=== PATIENT | male | born 1975 | race Caucasian/White ===

== ENCOUNTER 2023-02-23 07:40 | Emergency (ER) | payer OTHER, MEDICAID, SELFPAY ==
[2023-02-23] VITALS (13 sets, daily range): BP systolic 151–200; BP diastolic 88–129; PULSE 55–135; RESP 13–27; TEMP 37.4; O2SAT 96–99
--- NOTE | 2023-02-23 08:20 | ED.GENADULT ---
HPI - General Adult General Chief complaint: Abdominal Pain Stated complaint: abd pain Time Seen by Provider: 02/23/23 07:47 Source: patient Mode of arrival: Family Vehicle History of Present Illness HPI narrative: 47-year-old gentleman with a history of alcohol use disorder drink summer clean 6-12 vodka drinks daily, hypertension for which he takes losartan currently living on [place] presents with 2 days of severe abdominal pain as soon as he wakes up in the morning. Yesterday he had significant tenderness immediately after he awoke. He had some dry heaves but no acute vomiting. After about 3 hours it abated. He had normal appetite was able to eat and drink as usual amounts including his usual amounts of alcohol. He was feeling fine slept well when he woke up this morning within minutes of getting up he again had recurrent severe abdominal pain worse in the left upper quadrant, also involving the epigastrium. He states he had a episode of vomiting this morning that did not have any bloody debris. He has not had diarrhea and describes no black stools. He has not had fevers, cough, chills, headaches. No neurologic complaints. Of note, he did take his morning losartan but vomited shortly thereafter. He did have a drink of vodka to help with feeling shaky and somewhat nauseated. Related Data Previous Rx's Medication Instructions Recorded chlordiazepoxide HCl 25 mg capsule 25 mg PO TID PRN alcohol 02/23/23 withdrawal #20 caps Allergies Allergy/AdvReac Type Severity Reaction Status Date / Time No Known Drug Allergies Allergy Verified 02/23/23 09:16 Review of Systems Review of Systems Narrative: Pertinent positive and negative findings as per HPI Patient History Medical History Hypertension Alcohol use disorder Social History Smoking Status: Former smoker Smoking Status: Former smoker tobacco type: cigarettes and vaping alcohol intake frequency: 0-2 drinks per day Substance Use Type: does not use Exam Initial Vital Signs Initial Vital Signs: Vital Signs Temperature 99.3 F 02/23/23 07:40 Pulse Rate 76 02/23/23 07:40 Respiratory Rate 20 02/23/23 07:40 Blood Pressure 151/88 H 02/23/23 07:40 Pulse Oximetry 99 02/23/23 07:40 Oxygen Delivery Method Room Air 02/23/23 07:40 General: Healthy appearing, in no acute distress. Able to give a complete and coherent history. Well-nourished well-developed HEENT: Moist mucous membranes, normal sclera with reactive pupils, Neck: No JVD, supple Respiratory: Lungs are clear to auscultation, no wheezing no rales no rhonchi. Full and symmetrical air movement Cardiac: Regular rate and rhythm no murmurs no bruits Abdomen: Soft, moderate tenderness in the left upper quadrant and epigastrium, mild diffuse tenderness throughout. No rebound or guarding. Skin: Warm and dry, no rashes Neurologic: Grossly neurologically intact with no obvious asymmetries or abnormalities, does have a fine tremor. Extremities: No trauma, well perfused Psych: Cooperative, appropriate insight and affect Course Orders Ordered: ED Orders 02/23/23 08:12 Complete Blood Count AUTO DIFF Stat Comprehensive Metabolic Panel Stat Lipase Stat EKG-12 Lead Stat 02/23/23 08:35 CT abdomen pelvis w con Stat Hydromorphone HCl (Hydromorphone 0.5 Mg Inj) 0.5 mg IV Q15MIN PRN PRN Reason: Pain, Last Admin: 02/23/23 09:19 Dose: 0.5 mg Documented By: DEANDRA Ondansetron HCl (Ondansetron 4 Mg Odt) 4 mg PO NOW PRN PRN Reason: Nausea And Vomiting Ondansetron HCl (Ondansetron 4 Mg/2 Ml Inj) 4 mg IV NOW PRN PRN Reason: Nausea And Vomiting Last Admin: 02/23/23 09:20 Dose: 4 mg Documented By: DEANDRA Discontinued Medications Sodium Chloride (Normal Saline 0.9%) 1,000 mls @ 1,000 mls/hr IV BOLUS ONE Stop: 02/23/23 09:34 Last Infusion: 02/23/23 10:14 Dose: Infused Documented By: Admin: 02/23/23 09:19 Dose: 1,000 mls/hr Documented By: DEANDRA Lorazepam (Lorazepam 2 Mg/Ml Inj) 1 mg IV NOW ONE Stop: 02/23/23 08:36 Last Admin: 02/23/23 10:05 Dose: 1 mg Documented By: DEANDRA Vital Signs Vital signs: Vital Signs - 8 hr 02/23/23 07:40 02/23/23 07:50 02/23/23 07:51 Temperature 99.3 F Pulse Rate 76 79 Respiratory Rate 20 Blood Pressure 151/88 H 189/107 H Pulse Oximetry 99 97 Oxygen Delivery Method Room Air 02/23/23 07:51 02/23/23 08:00 02/23/23 08:00 Temperature Pulse Rate 67 76 Respiratory Rate 22 Blood Pressure 169/110 H Pulse Oximetry 97 97 Oxygen Delivery Method 02/23/23 08:14 02/23/23 08:14 02/23/23 08:27 Temperature Pulse Rate 66 Respiratory Rate 22 Blood Pressure 168/112 H 183/111 H Pulse Oximetry 98 Oxygen Delivery Method 02/23/23 08:27 02/23/23 08:30 02/23/23 08:30 Temperature Pulse Rate 67 65 Respiratory Rate 21 19 Blood Pressure 167/103 H Pulse Oximetry 97 98 Oxygen Delivery Method 02/23/23 08:57 02/23/23 08:57 02/23/23 09:00 Temperature Pulse Rate 57 L Respiratory Rate 13 Blood Pressure 184/115 H 177/117 H Pulse Oximetry 98 Oxygen Delivery Method 02/23/23 09:00 02/23/23 09:30 02/23/23 09:30 Temperature Pulse Rate 60 65 Respiratory Rate 13 27 H Blood Pressure 188/118 H Pulse Oximetry 98 97 Oxygen Delivery Method 02/23/23 09:48 02/23/23 09:48 02/23/23 10:00 Temperature Pulse Rate 55 L Respiratory Rate 24 Blood Pressure 175/107 H 200/129 H Pulse Oximetry 98 Oxygen Delivery Method 02/23/23 10:00 Temperature Pulse Rate 135 H Respiratory Rate 24 Blood Pressure Pulse Oximetry 98 Oxygen Delivery Method Room Air Medical Decision Making Lab Data 02/23/23 08:12 02/23/23 08:12 Labs: Lab Results 02/23/23 Range/Units 08:12 WBC 11.0 (4.5-11.0) X10^3/uL RBC 4.16 L (4.5-5.9) X10^6/uL Hgb 13.9 (13.5-17.5) g/dL Hct 40.3 L (41-53) % MCV 96.8 (80-100) fL MCH 33.3 (26-34) PG MCHC 34.4 (30-36) % RDW 13.1 (11.6-14.8) % Plt Count 326 (150-400) X10^3/uL Neut % (Auto) 71.7 (50-75) % Lymph % (Auto) 17.3 L (25-40) % [place] % (Auto) 9.3 (3-14) % Eos % (Auto) 1.2 L (2-4) % Baso % (Auto) 0.5 (0-2) % Neut # (Auto) 7900 H (3743-2969) /uL Lymph # (Auto) 1900 (5116-6000) /uL [place] # (Auto) 1000 H (0-900) /uL Eos # (Auto) 100 (0-450) /uL Baso # (Auto) 100 (0-100) /uL Sodium 137 (137-145) mmol/L Potassium 4.0 (3.4-5.1) mmol/L Chloride 106 (98-107) mmol/L Carbon Dioxide 23 (22-32) mmol/L BUN 7 L (9-20) mg/dL Creatinine 0.72 (0.66-1.25) mg/dL Estimated GFR > 60 (>60) mL/min BUN/Creatinine Ratio 9.7 (6-22) Glucose 107 H (70-100) mg/dL Calcium 9.1 (8.4-10.2) mg/dL Total Bilirubin 0.7 (0.2-1.3) mg/dL AST 64 H (17-59) IU/L ALT 71 H (<50) IU/L Alkaline Phosphatase 52 (38-126) U/L Total Protein 6.8 (6.3-8.2) g/dL Albumin 3.9 (3.5-5.0) g/dL Globulin 2.9 (1.7-4.1) g/dL Albumin/Globulin Ratio 1.3 (1.0-2.8) Lipase 117 (23-300) U/L Urine Dip Bedside Urine Glucose Negative Bedside Urine Bilirubin - Negative Bedside Urine Ketone - Negative Urine Specific [place] 1.010 Bedside Urine Occult Blood - Negative Bedside Urine pH 6.0 Bedside Urine Protein - Negative Bedside Urine Urobilinogen - Negative Bedside Urine Nitrite - Negative Bedside Urine Leukocytes - Negative Esterase Point of care testing: Urine Dip Bedside Urine Glucose Negative Bedside Urine Bilirubin - Negative Bedside Urine Ketone - Negative Urine Specific [place] 1.010 Bedside Urine Occult Blood - Negative Bedside Urine pH 6.0 Bedside Urine Protein - Negative Bedside Urine Urobilinogen - Negative Bedside Urine Nitrite - Negative Bedside Urine Leukocytes - Negative Esterase Imaging Data CT scan - abdomen/pelvis: Radiologist's Impression: FINDINGS: Image quality: Diagnostic. Lower Chest: Dependent atelectasis. No focal pulmonary consolidation or solid pulmonary nodule. No pleural effusion or pneumothorax. Normal heart size. ABDOMEN: Liver: Noncirrhotic morphology. Heterogeneous enhancement of the liver. Subcentimeter hypodensity in the left hepatic lobe (segment 4B) is too small to characterize (). Gallbladder: No radiopaque gallstones or wall thickening. Biliary ducts: No biliary dilation. Pancreas: No ductal dilation. Spleen: Size is within normal limits. Adrenal Glands: No adrenal nodules. Kidneys and Ureters: No hydronephrosis. No solid mass. No complex renal cystic lesion which requires follow up. Stomach and Bowel: No hiatal hernia. Stomach is decompressed, limiting evaluation, but appears grossly normal. Small and large bowel is normal in caliber, without obstruction. Normal appendix. No pneumatosis, pneumoperitoneum or portal venous gas. Peritoneum: No abnormal intraperitoneal fluid. No free air. Ventral Wall: No hernia. Abdominal Nodes: No retroperitoneal or mesenteric adenopathy by size criteria. Vessels: Aorta and inferior vena cava are normal in size. Mild calcification of the abdominal aorta and proximal iliac vessels. Patent hepatic, portal, splenic and bilateral renal veins. PELVIS: Pelvic Organs: Unremarkable. Bladder: Unremarkable. Pelvic Nodes: No enlarged lymph nodes. Miscellaneous: Small bilateral fat containing inguinal hernias. Bones: No acute fractures. No aggressive appearing lytic or blastic osseous lesions. Mild multilevel degenerative changes, notably in the thoracic spine. IMPRESSION: 1. Noncirrhotic liver morphology with heterogeneous enhancement suggestive of hepatitis. Patent portal and hepatic veins. Correlate with LFTs. 2. Subcentimeter hypodense lesion in the left hepatic lobe (segment 4B) is too small to characterize. Consider a nonemergent ultrasound for further evaluation in 2-3 weeks after hepatitis has improved. 3. Mild calcification of the infrarenal abdominal aorta and proximal iliac vessels, premature given patient's age. Dictated by: Aliya Francois M.D. on 02/23/2023 at 9:06 MDM Narrative Medical decision making narrative: CC: Abdominal pain Complicating co-morbidities: Alcohol use disorder, hypertension Data collected from: patient, partner Social determinants of health that may influence the patients condition: Liver [place], alcohol use disorder Medical records reviewed: No records are immediately available Differential considered: Pancreatitis, GI bleed, acute coronary syndrome, other alcohol complication Exam documented above, pertinent findings include: Patient appears generally well, has some left upper quadrant and epigastric tenderness, mild tremor with increasing heart rate and blood pressure as he has been here concerning for alcohol withdrawal symptoms Lab Test results independently reviewed as above. Pertinent findings: CBC is unremarkable Chemistries show a mildly elevated transaminase with AST at 64 ALT at 71 Lipase is unremarkable Independently reviewed EKG: Sinus rhythm at a rate of 67. Poor baseline. No acute ischemic changes Imaging studies independently reviewed: CT scan of the abdomen shows non cirrhotic liver morphology with heterogeneous enhancement suggestive of hepatitis no other significant abnormalities are appreciated Treatments: Fluids, Zofran, a mg of lorazepam, .5 mg of hydromorphone and 25 mg of Librium orally Discussion: 47-year-old gentleman with 2 mornings of upper abdominal pain. Labs show slightly elevated AST and ALT. CT scan suggests mild alcoholic hepatitis which is absolutely consistent with his overall presentation. We had a nice discussion regarding his alcohol use disorder. He notes that he has been drinking quite a bit more over the holidays. He had been on oral naltrexone but has not been taking it because the prescription needed to be refilled for at least a week. He is interested in stopping drinking. Talked about perhaps switching his naltrexone to injectable rather than oral as it might be more effective for him. Also suggested both outpatient and inpatient treatment for his alcohol use disorder. You are given a prescription for Librium to help with his alcohol withdrawal over the next couple of days. At this point I do believe it is safe for him to return to [place]. All of this is shared with both the patient and his partner. Both are pleased with the findings, questions are answered and he seems quite interested in getting to sober. He is safe for discharge Discharge Plan Departure Patient Disposition: Home Clinical Impression: Acute alcoholic hepatitis, Alcohol use disorder Instructions: DI for Drug or Alcohol Withdrawal Activity Restrictions/Additional Instructions: Thank you for coming in today Your abdominal pain is likely secondary to alcoholic hepatitis. This is likely causing the pain that you are experiencing in the morning. Fortunately, your liver is very good at fixing itself when you are no longer poisoning it with alcohol. You need to stop drinking I suspect that it will only take a couple of days of decreased alcohol use for you to begin feeling better and you will truly began to see the benefits once you have continued with your path to sobriety. I would encourage you to talk to your primary care doctor about medication options. Many people find that once they have stopped drinking the naltrexone is more effective as an injection than as an oral option In the meantime, I have given you a prescription for Librium/chlordiazepoxide. This is a very long acting benzodiazepine that helps with alcohol withdrawal. Please do not mix this with alcohol. I would recommend 25mg every 6 hours for Day 1 Every 8 hours for day 2 and 3 every 12 hours day 4 and 5 daily for 1 to 2 days If you find that you are getting worse or develop any new symptoms, please feel free to return to the emergency department for further evaluation. Prescriptions: New chlordiazepoxide HCl 25 mg capsule 25 mg PO TID PRN (Reason: alcohol withdrawal) Qty: 20 0RF Stand Alone Forms: Patient Portal/API
[2023-02-23 08:21] LABS: Add Manual Diff / Slide Review NO; Basophils Absolute Auto 100 /uL (0-100); Basophils Percent Auto 0.5 % (0-2); Eosinophils Absolute Auto 100 /uL (0-450); Eosinophils Percent Auto 1.2 % (2-4); Hematocrit 40.3 % (41-53); Hemoglobin 13.9 g/dL (13.5-17.5); Lymphocytes Absolute Auto 1900 /uL (1100-4500); Lymphocytes Percent Auto 17.3 % (25-40); Mean Corpuscular HGB Conc 34.4 % (30-36); Mean Corpuscular Hemoglobin 33.3 PG (26-34); Mean Corpuscular Volume 96.8 fL (80-100); Monocytes Absolute Auto 1000 /uL (0-900); Monocytes Percent Auto 9.3 % (3-14); Neutrophils Absolute Auto 7900 /uL (1500-7000); Neutrophils Percent Auto 71.7 % (50-75); Platelet Count 326 X10^3/uL (150-400); Red Blood Cell Count 4.16 X10^6/uL (4.5-5.9); Red Cell Distribution Width 13.1 % (11.6-14.8)
[2023-02-23 08:32] LABS: Alanine Aminotransferase 71 IU/L (<50); Albumin 3.9 g/dL (3.5-5.0); Albumin Globulin Ratio 1.3 (1.0-2.8); Alkaline Phosphatase 52 U/L (38-126); Aspartate Aminotransferase 64 IU/L (17-59); BUN Creatinine Ratio 9.7 (6-22); Bilirubin Total 0.7 mg/dL (0.2-1.3); Blood Urea Nitrogen 7 mg/dL (9-20); Calcium 9.1 mg/dL (8.4-10.2); Carbon Dioxide 23 mmol/L (22-32); Chloride 106 mmol/L (98-107); Estimated Glomerular Filt Rate > 60 mL/min (>60); Globulin 2.9 g/dL (1.7-4.1); Glucose 107 mg/dL (70-100); HEMOLYSIS < 15 (0-50); Lipase 117 U/L (23-300); Sodium 137 mmol/L (137-145); Total Protein 6.8 g/dL (6.3-8.2)
--- NOTE | 2023-02-23 08:35 | DI.CT.S_ITS ---
PROCEDURE: CT ABDOMEN PELVIS W CON INDICATIONS: Upper abdominal pain for 48 hours TECHNIQUE: After the administration of intravenous contrast, axial sections acquired from the lung bases to the pubic symphysis. Coronal and sagittal reformats were performed. For radiation dose reduction, the following was used: automated exposure control, adjustment of mA and/or kV according to patient size. COMPARISON: None. FINDINGS: Image quality: Diagnostic. Lower Chest: Dependent atelectasis. No focal pulmonary consolidation or solid pulmonary nodule. No pleural effusion or pneumothorax. Normal heart size. ABDOMEN: Liver: Noncirrhotic morphology. Heterogeneous enhancement of the liver. Subcentimeter hypodensity in the left hepatic lobe (segment 4B) is too small to characterize (). Gallbladder: No radiopaque gallstones or wall thickening. Biliary ducts: No biliary dilation. Pancreas: No ductal dilation. Spleen: Size is within normal limits. Adrenal Glands: No adrenal nodules. Kidneys and Ureters: No hydronephrosis. No solid mass. No complex renal cystic lesion which requires follow up. Stomach and Bowel: No hiatal hernia. Stomach is decompressed, limiting evaluation, but appears grossly normal. Small and large bowel is normal in caliber, without obstruction. Normal appendix. No pneumatosis, pneumoperitoneum or portal venous gas. Peritoneum: No abnormal intraperitoneal fluid. No free air. Ventral Wall: No hernia. Abdominal Nodes: No retroperitoneal or mesenteric adenopathy by size criteria. Vessels: Aorta and inferior vena cava are normal in size. Mild calcification of the abdominal aorta and proximal iliac vessels. Patent hepatic, portal, splenic and bilateral renal veins. PELVIS: Pelvic Organs: Unremarkable. Bladder: Unremarkable. Pelvic Nodes: No enlarged lymph nodes. Miscellaneous: Small bilateral fat containing inguinal hernias. Bones: No acute fractures. No aggressive appearing lytic or blastic osseous lesions. Mild multilevel degenerative changes, notably in the thoracic spine. IMPRESSION: 1. Noncirrhotic liver morphology with heterogeneous enhancement suggestive of hepatitis. Patent portal and hepatic veins. Correlate with LFTs. 2. Subcentimeter hypodense lesion in the left hepatic lobe (segment 4B) is too small to characterize. Consider a nonemergent ultrasound for further evaluation in 2-3 weeks after hepatitis has improved. 3. Mild calcification of the infrarenal abdominal aorta and proximal iliac vessels, premature given patient's age. Dictated by: Aliya Francois M.D. on 02/23/2023 at 9:06 Approved by: Aliya Francois M.D. on 02/23/2023 at 9:12
[2023-02-23] MEDS: HYDROMORPHONE 0.5 MG INJ IV (09:19)
[2023-02-23] MEDS: SODIUM CHLORIDE 0.9% 1,000 ML 1000 ML IV (09:19)
[2023-02-23] MEDS: ONDANSETRON 4 MG/2 ML INJ IV (09:20)
[2023-02-23] MEDS: LORazepam 2 MG/ML INJ 1 MG IV (10:05)
[2023-02-23] MEDS: chlordiazePOXIDE 25 MG CAPSULE PO (11:20)
== END 2023-02-23 11:31 | disposition home or self-care (01) ==
PROVIDERS: Emergency Provider Emergency Medicine
DX: K70.10 Alcoholic hepatitis without ascites (principal); F10.90 Alcohol use, unspecified, uncomplicated
CPT/HCPCS: 36415; 74177; 80053; 81003; 83690; 85025; 93005; 96361; 96374; 96375; 99284; J1170; J2060; J2405; Q9967

== ENCOUNTER 2023-07-12 15:40 | Emergency (ER) | payer OTHER, MEDICAID, SELFPAY ==
[2023-07-12] VITALS (26 sets, daily range): BP systolic 139–171; BP diastolic 89–106; PULSE 57–74; RESP 11–25; TEMP 36.8; O2SAT 95–99; BMI 26.6
--- NOTE | 2023-07-12 15:50 | DI.RAD.S_ITS ---
PROCEDURE: XR CHEST 1V INDICATIONS: chest pain TECHNIQUE: One view of the chest was acquired. COMPARISON: None. FINDINGS: Surgical changes and devices: None. Lungs and pleura: Lungs are clear. No pleural effusions or pneumothorax. Mediastinum: Mediastinal contours appear normal. Heart size is normal. Bones and chest wall: No suspicious bony lesions. Overlying soft tissues appear unremarkable. IMPRESSION: No acute pulmonary process. Dictated by: Rocio Tyson M.D. on 07/12/2023 at 17:06 Approved by: Rocio Tyson M.D. on 07/12/2023 at 17:06
--- NOTE | 2023-07-12 16:17 | PC.NURSE ---
Pt reports that he has been having intermittent pressure in his chest that he describes as like someone is squeezing my heart. Pt reports feeling starts in chest and then radiates to his abd, neck and left arm. Pt also reports that he has been having intermittent tingling in his left thumb.
[2023-07-12 16:19] LABS: Add Manual Diff / Slide Review NO; Basophils Absolute Auto 100 /uL (0-100); Basophils Percent Auto 0.6 % (0-2); Eosinophils Absolute Auto 200 /uL (0-450); Eosinophils Percent Auto 2.5 % (2-4); Hematocrit 42.3 % (41-53); Hemoglobin 14.5 g/dL (13.5-17.5); Lymphocytes Absolute Auto 3000 /uL (1100-4500); Lymphocytes Percent Auto 31.1 % (25-40); Mean Corpuscular HGB Conc 34.4 % (30-36); Mean Corpuscular Hemoglobin 31.2 PG (26-34); Mean Corpuscular Volume 90.8 fL (80-100); Monocytes Absolute Auto 900 /uL (0-900); Monocytes Percent Auto 9.4 % (3-14); Neutrophils Absolute Auto 5400 /uL (1500-7000); Neutrophils Percent Auto 56.4 % (50-75); Platelet Count 385 X10^3/uL (150-400); Red Blood Cell Count 4.66 X10^6/uL (4.5-5.9); Red Cell Distribution Width 12.8 % (11.6-14.8); White Blood Cell Count 9.6 X10^3/uL (4.5-11.0)
[2023-07-12 16:24] LABS: INR 0.9 (0.9-1.3); Prothrombin Time 10.4 SECONDS (9.4-12.5)
[2023-07-12 16:27] LABS: PTT Partial Thromboplastin Tim 34 SECONDS (25.1-36.5)
[2023-07-12 16:39] LABS: Alanine Aminotransferase 16 IU/L (<50); Albumin 4.3 g/dL (3.5-5.0); Albumin Globulin Ratio 1.7 (1.0-2.8); Alkaline Phosphatase 64 U/L (38-126); Aspartate Aminotransferase 23 IU/L (17-59); BUN Creatinine Ratio 12.2 (6-22); Bilirubin Total 0.4 mg/dL (0.2-1.3); Blood Urea Nitrogen 9 mg/dL (9-20); Calcium 9.1 mg/dL (8.4-10.2); Carbon Dioxide 27 mmol/L (22-32); Chloride 109 mmol/L (98-107); Creatine Kinase 80 U/L (55-170); Estimated Glomerular Filt Rate > 60 mL/min (>60); Globulin 2.5 g/dL (1.7-4.1); Glucose 90 mg/dL (70-100); HEMOLYSIS 15 (0-50); Lipase 80 U/L (23-300); Magnesium 2.1 mg/dL (1.6-2.3); Potassium 4.1 mmol/L (3.4-5.1); Sodium 141 mmol/L (137-145); Total Protein 6.8 g/dL (6.3-8.2)
[2023-07-12 16:51] LABS: Troponin I 0.012 ng/mL (0.01-0.034)
--- NOTE | 2023-07-12 18:17 | ED.GENADULT ---
HPI - General Adult General Chief complaint: Chest Pain Stated complaint: feels like energy spikes, chest, head, ears,arms Time Seen by Provider: 07/12/23 18:10 Source: patient Mode of arrival: Ambulatory History of Present Illness HPI narrative: 48-year-old male with no history of known coronary artery disease, has intermittent electric shock-like symptoms sensation to anterior right and left chest, sometimes radiating to the left chest, over the last 2 days. Symptoms are brief and only seconds or even perhaps single heartbeat like induration. Not worse with deep breathing or changes position, nor with upper extremity movements. No associated diaphoresis, nausea or vomiting. No other radiation besides the left arm. He has not tried any specific treatment. Approximately 1-1/2 years ago he recalls having passing-out episodes, wore a cardiac Holter monitor, saw a electric car operator Dr. Joy in follow-up, no specific diagnosis, no medications, no interventions, and he has stopped having these events since evaluation. He did stop drinking alcohol in February of this year. Denies drug use. Related Data Previous Rx's Medication Instructions Recorded chlordiazepoxide HCl 25 mg capsule 25 mg PO TID PRN alcohol 02/23/23 withdrawal #20 caps Allergies Allergy/AdvReac Type Severity Reaction Status Date / Time No Known Drug Allergies Allergy Verified 07/12/23 15:52 Review of Systems Review of Systems ROS Unobtainable: All systems reviewed & are unremarkable except as noted in HPI and below Patient History Medical History Hypertension Alcohol use disorder Social History Smoking Status: Former smoker Smoking Status: Former smoker tobacco type: cigarettes and vaping alcohol intake frequency: 0-2 drinks per day Alcohol type: hard liquor Substance Use Type: crack/cocaine and hallucinogens Exam Initial Vital Signs Initial Vital Signs: Vital Signs Temperature 98.3 F 07/12/23 15:42 Pulse Rate 67 07/12/23 15:42 Respiratory Rate 20 07/12/23 15:42 Blood Pressure 157/99 H 07/12/23 15:42 Pulse Oximetry 99 07/12/23 15:42 Oxygen Delivery Method Room Air 07/12/23 15:42 GENERAL: 48 year old patient appears stated age. Well-developed patient, in mild distress. HEAD: Atraumatic. Normocephalic. EYES: Pupils equal round and reactive. Extraocular motions intact. No scleral icterus. No injection or drainage. ENT: Nose without bleeding, purulent drainage. Throat without erythema, tonsillar hypertrophy or exudate. Airway patent. NECK: Trachea midline. Non tender CARDIOVASCULAR: Regular rate and rhythm without murmurs, gallops, or rubs. RESPIRATORY: Clear to auscultation. Breath sounds equal bilaterally. No wheezes, rales, or rhonchi. GASTROINTESTINAL: Abdomen soft, non-tender, nondistended. EXTREMITIES: No edema or joint tenderness. BACK: Nontender without deformity or crepitance. No flank tenderness. NEURO: AOx3. SKIN: No rash or erythema of visible areas Course Orders Ordered: Discontinued Medications Aspirin (Aspirin 81 Mg Chew Tab) 324 mg PO NOW ONE Stop: 07/12/23 15:51 Last Admin: 07/12/23 20:57 Dose: Not Given Documented By: NINA Vital Signs Vital signs: Vital Signs - 8 hr 07/12/23 15:42 07/12/23 15:48 07/12/23 15:49 Temperature 98.3 F Pulse Rate 67 68 Respiratory Rate 20 18 Blood Pressure 157/99 H 157/99 H Pulse Oximetry 99 99 Oxygen Delivery Method Room Air 07/12/23 16:00 07/12/23 16:00 07/12/23 16:15 Temperature Pulse Rate 62 66 Respiratory Rate 15 19 Blood Pressure 140/90 Pulse Oximetry 98 98 Oxygen Delivery Method 07/12/23 16:15 07/12/23 16:30 07/12/23 16:30 Temperature Pulse Rate 65 Respiratory Rate 15 Blood Pressure 145/95 H 139/98 H Pulse Oximetry 98 Oxygen Delivery Method 07/12/23 16:45 07/12/23 16:45 07/12/23 17:00 Temperature Pulse Rate 66 67 Respiratory Rate 21 16 Blood Pressure 144/100 H Pulse Oximetry 98 97 Oxygen Delivery Method 07/12/23 17:00 07/12/23 17:15 07/12/23 17:15 Temperature Pulse Rate 68 Respiratory Rate 18 Blood Pressure 143/98 H 151/100 H Pulse Oximetry 97 Oxygen Delivery Method Medical Decision Making Differential Diagnosis Differential Diagnosis: Palpitations, PVCs, tachyarrhythmia, SVT, VT, paroxysmal Afib Medical Records Medical records reviewed: Yes I reviewed the patient's medical records. Lab Data Lab results reviewed: Yes I reviewed the patient's lab results. 07/12/23 16:00 07/12/23 16:00 Labs: Lab Results 07/12/23 07/12/23 Range/Units 16:00 20:11 WBC 9.6 (4.5-11.0) X10^3/uL RBC 4.66 (4.5-5.9) X10^6/uL Hgb 14.5 (13.5-17.5) g/dL Hct 42.3 (41-53) % MCV 90.8 (80-100) fL MCH 31.2 (26-34) PG MCHC 34.4 (30-36) % RDW 12.8 (11.6-14.8) % Plt Count 385 (150-400) X10^3/uL Neut % (Auto) 56.4 (50-75) % Lymph % (Auto) 31.1 (25-40) % [place] % (Auto) 9.4 (3-14) % Eos % (Auto) 2.5 (2-4) % Baso % (Auto) 0.6 (0-2) % Neut # (Auto) 5400 (0344-2173) /uL Lymph # (Auto) 3000 (6367-6761) /uL [place] # (Auto) 900 (0-900) /uL Eos # (Auto) 200 (0-450) /uL Baso # (Auto) 100 (0-100) /uL PT 10.4 (9.4-12.5) SECONDS INR 0.9 (0.9-1.3) APTT 34 (25.1-36.5) SECONDS Sodium 141 (137-145) mmol/L Potassium 4.1 (3.4-5.1) mmol/L Chloride 109 H (98-107) mmol/L Carbon Dioxide 27 (22-32) mmol/L BUN 9 (9-20) mg/dL Creatinine 0.74 (0.66-1.25) mg/dL Estimated GFR > 60 (>60) mL/min BUN/Creatinine Ratio 12.2 (6-22) Glucose 90 (70-100) mg/dL Calcium 9.1 (8.4-10.2) mg/dL Magnesium 2.1 (1.6-2.3) mg/dL Total Bilirubin 0.4 (0.2-1.3) mg/dL AST 23 (17-59) IU/L ALT 16 (<50) IU/L Alkaline Phosphatase 64 (38-126) U/L Total Creatine Kinase 80 (55-170) U/L Troponin I 0.012 < 0.012 (0.01-0.034) ng/mL Total Protein 6.8 (6.3-8.2) g/dL Albumin 4.3 (3.5-5.0) g/dL Globulin 2.5 (1.7-4.1) g/dL Albumin/Globulin Ratio 1.7 (1.0-2.8) Lipase 80 (23-300) U/L Imaging Data Chest x-ray: Radiologist's Impression: [address] [address] XRay Report Signed Patient: Linsey Rice MR#: [id number] : 1975 Acct:[id number] Age/Sex: 48 / M Date of Service: 07/12/23 Loc: ED Accession Number: [id number] Procedure: XR chest 1V Ordering Provider: Lissa Jimenez D.O. PROCEDURE: XR CHEST 1V INDICATIONS: chest pain TECHNIQUE: One view of the chest was acquired. COMPARISON: None. FINDINGS: Surgical changes and devices: None. Lungs and pleura: Lungs are clear. No pleural effusions or pneumothorax. Mediastinum: Mediastinal contours appear normal. Heart size is normal. Bones and chest wall: No suspicious bony lesions. Overlying soft tissues appear unremarkable. IMPRESSION: No acute pulmonary process. Dictated by: Rocio Tyson M.D. on 07/12/2023 at 17:06 Approved by: Rocio Tyson M.D. on 07/12/2023 at 17:06 ECG Data Prior ECG tracings: available for review Interpretation: Normal sinus rhythm with rate of 65, normal intervals, no obvious ST segment elevation or depression changes. MDM Narrative Medical decision making narrative: 48-year-old male with intermittent chest shocking like symptoms, prior Holter monitoring 1-1/2 years ago unrevealing, stopped drinking alcohol February 2022, no known CAD, screening EKG without obvious ischemic change and has normal intervals, initial troponin negative. Chest x-ray negative. Currently chest discomfort free. We will obtain interval troponin. Possible he is sensing PVCs, versus other. Consider Cardiology consult, consider repeat cardiac monitoring Critical Care Time Critical Care Time Total Critical Care Time: 35 Attestation: The high probability of a clinically significant, sudden or life threatening deterioration of the [cardiopulmonary] system(s) required my full and direct attention, intervention and personal management. The aggregate critical care time was [35] minutes. This time is in addition to time spent performing reported procedures but includes the following: [x] Data Review and interpretation [x] Patient assessment and monitoring of vital signs [x] Documentation [x] Medication orders and management Discharge Plan Departure Patient Disposition: Home Clinical Impression: Heart palpitations, Chest pain Instructions: DI for Atypical Chest Pain, DI for Arrhythmias Activity Restrictions/Additional Instructions: Intermittent electrical like instantaneous anterior chest discomfort lasting a 2nd or 2 or a beat or 2 only, intermittently through the day today. History of prior passing-out episodes for which you were tested a year and a half ago with heart cardiac monitoring. EKG and serial blood test today not suggestive of heart attack thus far. Consider repeat cardiac monitoring, by history it sounds like he might be having sensation of premature ventricular contractions. These can be quite uncomfortable and quite noticeable. If they are not sustained however and did not cause you to pass out then there is not usually specific treatment. It is unclear if this is the true diagnosis. Consider further workup as an outpatient. Follow up with your regular provider to arrange cardiac Holter monitoring. It would be helpful to avoid alcohol, drugs, decongestants, cough cold medications, caffeine products, if they might be causing or contributing to any palpitation PVC like symptoms. Consider taking 1 aspirin daily for now. Return to this/nearest emergency department for any change worsening symptoms or any concerns prior Prescriptions: No Action chlordiazepoxide HCl 25 mg capsule 25 mg PO TID PRN (Reason: alcohol withdrawal) Qty: 20 0RF Referrals: Moody Booker DO [Non-Staff] - Stand Alone Forms: Patient Portal/API
--- NOTE | 2023-07-12 19:00 | PC.NURSE ---
pt resting quietly in room waiting disposition without any c/o at this time
[2023-07-12 20:44] LABS: Troponin I < 0.012 ng/mL (0.01-0.034)
== END 2023-07-12 21:10 | disposition home or self-care (01) ==
PROVIDERS: Emergency Medicine; Emergency Provider Emergency Medicine
DX: R07.9 Chest pain, unspecified (principal); R00.2 Palpitations
CPT/HCPCS: 36415; 71045; 80053; 82550; 83690; 83735; 84484; 85025; 85610; 85730; 93005; 93010; 99283; 99284

== ENCOUNTER → 2023-10-09 07:36 | Outpatient (CLI) | payer OTHER, MEDICAID, SELFPAY ==
--- NOTE | 2023-10-09 | DI.CT.S_ITS ---
PROCEDURE: CT LUNG LOW DOSE SCREENING INDICATIONS: history of smoking tobacco products TECHNIQUE: Noncontrast 2.0-2.5 mm thick sections acquired from the pulmonary apices to the posterior costophrenic angles. 7 mm thick axial MIP, and 5 mm coronal and sagittal reformats were then acquired. For radiation dose reduction, the following was used: automated exposure control, adjustment of mA and/or kV according to patient size. COMPARISON: None. FINDINGS: Image quality: Diagnostic. Lower Neck: No enlarged lymph nodes. Thyroid: No thyroid nodules which require sonographic follow up, per consensus guidelines. Axillae: No enlarged lymph nodes. Chest Wall: Unremarkable. Bones: Unremarkable. Lungs and Pleura: No pneumothorax or pleural effusions. No consolidation or suspicious nodules. Heart: Heart size is normal. No pericardial effusion. Thoracic Vessels: The aorta and pulmonary arteries demonstrate normal size. Mediastinum and [place]: No enlarged lymph nodes. Esophagus: No wall thickening. No hiatal hernia. Upper Abdomen: Visualized upper abdomen solid organs and bowel loops appear normal. IMPRESSION: No suspicious pulmonary nodules. LUNG-RADS 2 BENIGN; continued annual screening, if eligible. Clinically Significant Non-pulmonary Findings: None. Dictated by: Delvis Mahoney M.D. on 10/09/2023 at 15:03 Approved by: Delvis Mahoney M.D. on 10/09/2023 at 15:09
== END ==
LOC: CT 07:38
PROVIDERS: PCP Physician Assistant; Referring Provider Physician Assistant; Visit Provider Physician Assistant
DX: Z12.2 Encounter for screening for malignant neoplasm of respiratory organs (principal); F17.210 Nicotine dependence, cigarettes, uncomplicated
CPT/HCPCS: 71271

== ENCOUNTER → 2023-11-01 13:49 | Outpatient (CLI) | payer OTHER, MEDICAID, SELFPAY ==
--- NOTE | 2023-11-01 | DI.US.S_ITS ---
PROCEDURE: US ABDOMEN LIMITED INDICATIONS: Alcoholic hepatitis without ascites TECHNIQUE: Real-time scanning was performed of the abdominal and retroperitoneal organs, with image documentation. COMPARISON: None. FINDINGS: Liver: Liver is normal in size and homogeneous in echotexture. Gallbladder: No gallstones. No wall thickening. No pericholecystic edema. Negative sonographic Prince's sign. Biliary ducts: Intrahepatic bile ducts are non-dilated. Extrahepatic bile duct caliber measures 7.3 mm. Normal is 6-7 mm or less in diameter, or 10 mm or less post-cholecystectomy. IMPRESSION: Borderline prominent common bile duct. No visualized source of obstruction. Dictated by: Rocio Tyson M.D. on 11/02/2023 at 13:20 Approved by: Rocio Tyson M.D. on 11/02/2023 at 13:21
== END ==
PROVIDERS: PCP Physician Assistant; Referring Provider Physician Assistant; Visit Provider Physician Assistant
DX: K70.10 Alcoholic hepatitis without ascites (principal)
CPT/HCPCS: 76705